=== PATIENT | female | born 2000 | race Caucasian/White ===

== ENCOUNTER → 2022-07-29 | Outpatient (CLI) | payer BC | END | disposition home or self-care (01) | LOC: LABWHC1 09:48 | PROVIDERS: ATTEND Pediatrics | DX: Z02.2 Encounter for examination for admission to residential institution (principal) | CPT/HCPCS: 36415; 86765 ==

== ENCOUNTER → 2022-08-10 | Outpatient (CLI) | payer BC ==
[2022-08-11 00:57] LABS: Mumps Virus IgG Ab Interp POSITIVE (NEGATIVE); Mumps Virus IgG Antibody 1.7 AI
== END | disposition home or self-care (01) ==
LOC: LABWHC1 13:15
PROVIDERS: ATTEND Pediatrics
DX: Z02.2 Encounter for examination for admission to residential institution (principal)
CPT/HCPCS: 36415; 86735; 86762; 86765